=== PATIENT | female | born 1955 | race Caucasian/White ===

== ENCOUNTER 2016-06-07 10:08 | Day surgery (SDC) | payer OTHER ==
[~2016-06-07] VITALS: Ht 157.5 cm; Wt 112.0 kg
[~2016-06-07 10:08] MED LIST: 0.9% Sodium Chloride 1,000 ML IV PRN; LISI10TA PO; METF500T4 PO; Sodium Chloride LOK Flush 10 mL Syringe IV PRN; fentaNYL-PF 50 mCg/mL 2 mL Inj IVPUSH PRN
[2016-06-07] MEDS ORDERED: MULT1CAP33 PO (10:59)
[2016-06-07] MEDS ORDERED: CA C1TAB83 PO (10:59)
[2016-06-07] MEDS ORDERED: OMEG500C PO (10:59)
[2016-06-07] MEDS ORDERED: ASPI-973 PO (10:59)
[2016-06-07] MEDS ORDERED: LOVA20TA PO (10:59)
[2016-06-07] MEDS ORDERED: UBID100C16 PO (10:59)
[2016-06-07] MEDS ORDERED: SOY155CA PO (10:59)
[2016-06-07 11:00] VITALS: BP 132/82; PULSE 80; RESP 16; O2SAT 97
[2016-06-07 12:03] VITALS: BP 120/54; PULSE 73; RESP 14; O2SAT 96
--- NOTE | 2016-06-07 12:04 | PCM.ENDCOL ---
Colonoscopy Date of Service: Jun 07, 2016 Physician Mathew Wilson MD Indication for Procedure Screening colon cancer Post Procedure Dx & Findings: Colon polyp diverticulitis hemorrhoids Procedure Colonoscopy Prep adequate Withdrawal 11 minutes PROCEDURE IN DETAIL: After unremarkable rectal examination this videocolonoscope was inserted into patient's anal canal and was advanced to cecum. Landmarks were identified and ileocecal valve and the appendiceal orifice identified. Scope was withdrawn systematically. The mucosa of the cecum, ascending, transverse, descending, sigmoid, rectal mucosa lined with whitish, pink, smooth, glistening, normal-appearing mucosa, normal fine branching, underlying vascularity, normal haustra. The patient tolerated procedure and was transported to observation area. Diverticuli noted and there are few of them in the sigmoid colon. Polyp in the rectum 2-3 mm in size. This was resected completely using cold snare. In the rectum retroflexion was done which showed hemorrhoids. Anal canal was inspected carefully in the way out and mild hemorrhoids noted. Impression Hemorrhoids Polyp status post complete removal Diverticuli Recommendation Repeat colonoscopy 5 years Diverticular diet. Presedation Assessment Risks and Benefits Informed consent was obtained from the patient after all risks and benefits including but not limited to drug reaction, infection, pain, bleeding, perforation, as well as alternatives were discussed. Patient monitoring Continuous pulse oximetry, cardiac monitoring, blood pressure monitoring, IV access, and oxygen at 2L per nasal cannula. Periprocedural Fentanyl: Fentanyl 100mcg Incrementally Midazolam: Midazolam 5mg Incrementally Complications There were no periprocedural complications identified. Post Procedure Plan Post Procedure Recommendations 1. Restrict activities today. 2. Resume normal activities in the morning. 3. Resume medications. 4. Patient informed of normal post procedure side effects as bloating, drowsiness, blood streaking in the stool. 5. average risk CRCS. If colon polyps come back as: -Hyperplastic- can repeat colonoscopy in 10 years -Tubular adenoma- repeat colonoscopy in 5 years -Tubulovillous/villous adenoma- repeat colonoscopy in 3 years -If any dysplasia- return to clinic as soon as possible 6. Please don't hesitate to call me with any questions. Mathew Wilson MD Jun 07, 2016 12:04
[2016-06-07 12:13] VITALS: BP 112/52; PULSE 73; RESP 14; O2SAT 96
[2016-06-07 12:23] VITALS: BP 119/67; PULSE 77; RESP 14; O2SAT 97
--- NOTE | 2016-06-08 12:05 | PATH ---
SURGICAL PATHOLOGY Attending Physician:Mathew Wilson M.D. CASE STATUS: Signed Out PATIENT NAME: SANJEEV KRAFT PID: [id number] : 1955 DATE COLLECTED:06/07/2016 20:25 SPECIMEN: Rectum, Biopsy CLINICAL HISTORY: 1). RECTAL POLYP FINAL DIAGNOSIS: 1.RECTAL POLYP: TUBULAR ADENOMA. ICD10 CODE D12.8 GROSS DESCRIPTION: The specimen is received in one formalin filled container labeled with the patient's name, sublabeled "rectal polyp" and consists of a 0.4 x 0.4 x 0.3 CM portion of tissue which is entirely submitted in one cassette. 06/07/2016 DAC MICRO DESCRIPTION: See diagnosis. ICD-9 CODES: CPT CODES: 1: 12957 Electronically Signed Out Shanita Pollock MD [facility], [place] [address] Technical component performed at [facility], [address] [place] [address] Ave[address], [place], [address]
== END 2016-06-07 23:59 | disposition home or self-care (01) ==
LOC: END 10:08
PROVIDERS: ATTEND Internal Medicine
DX: Z12.11 Encounter for screening for malignant neoplasm of colon (principal); D12.8 Benign neoplasm of rectum; K57.30 Diverticulosis of large intestine without perforation or abscess without bleeding; K64.8 Other hemorrhoids; Z80.0 Family history of malignant neoplasm of digestive organs; E78.2 Mixed hyperlipidemia; E11.9 Type 2 diabetes mellitus without complications; Z79.84 Long term (current) use of oral hypoglycemic drugs; I10 Essential (primary) hypertension; Z87.891 Personal history of nicotine dependence
CPT/HCPCS: 45385; J2250; J7030